=== PATIENT | female | born 1995 ===

== ENCOUNTER 2017-05-21 13:49 | Inpatient (IN) | payer BC ==
[~2017-05-21] VITALS: Ht 162.6 cm; Wt 52.2 kg
[2017-05-22 20:44] VITALS: BP 122/71
[2017-05-22] MEDS ORDERED: Lactulose 20gm/30ml UDC ORAL PRN (21:00)
[2017-05-22] MEDS ORDERED: traMADol 50mg tab ORAL PRN (21:00)
[2017-05-23] VITALS: BP 99/52
[2017-05-23] MEDS ORDERED: Morphine Sulfate 4mg/ml Inj ONE ×3 (00:05→09:17)
[2017-05-23] MEDS: ALPRAZolam 0.5mg tab ORAL SCH ×2 (00:11→09:23)
[2017-05-23] MEDS: Morphine Sulfate 2mg/ml Inj IVP PRN ×2 (00:12→05:00)
[2017-05-23 04:00] VITALS: BP 125/70
[2017-05-23 08:04] VITALS: BP 102/75
[2017-05-23 08:24] LABS: BASOPHILS % (AUTO) 0.8 % (0.0-2.0); EOSINOPHILS % (AUTO) 5.6 % (0.0-3.0); HEMATOCRIT 41.3 % (37.0-47.0); HEMOGLOBIN 13.2 G/DL (12.0-16.0); LYMPHOCYTES % (AUTO) 38.7 % (20.0-45.0); MEAN CORPUSCULAR VOLUME 74 FL (80-99); MONOCYTES % (AUTO) 8.5 % (1.0-10.0); NEUTROPHILS % (AUTO) 46.5 % (45.0-75.0); PLATELET COUNT 294 K/UL (150-450); RED CELL DISTRIBUTION WIDTH 14.9 % (11.6-14.8)
[2017-05-23 08:36] LABS: ALANINE AMINOTRANSFERASE 404 U/L (12-78); ALBUMIN 3.1 G/DL (3.4-5.0); ALBUMIN/GLOBULIN RATIO 0.6 (1.0-2.7); ALKALINE PHOSPHATASE 172 U/L (46-116); ANION GAP 4 mmol/L (5-15); ASPARTATE AMINO TRANSFERASE 121 U/L (15-37); BILIRUBIN,TOTAL 0.2 MG/DL (0.2-1.0); BLOOD UREA NITROGEN 13 mg/dL (7-18); CALCIUM 9.3 MG/DL (8.5-10.1); CARBON DIOXIDE 33 MMOL/L (21-32); CHLORIDE 102 MMOL/L (98-107); CREATININE 0.7 MG/DL (0.55-1.30); PHOSPHORUS 4.2 MG/DL (2.5-4.9); POTASSIUM 4.4 MMOL/L (3.5-5.1); SODIUM 139 MMOL/L (136-145)
[2017-05-23] MEDS ORDERED: cefTRIAXone 2 GM in D5W 55 ML IVPB SCH (09:00)
[2017-05-23] MEDS ORDERED: cefTRIAXone 2 GM in NS 55 ML IVPB SCH (09:00)
[2017-05-23] MEDS ORDERED: Enoxaparin 40mg Inj SUBQ SCH (09:00)
[2017-05-23] MEDS ORDERED: Morphine Sulfate 4mg/ml Inj IVP PRN ×2 (10:00→10:30)
[2017-05-23] MEDS ORDERED: NS 275ml ONE (12:35)
[2017-05-23] MEDS ORDERED: Tubing IV Secondary IV ONE (12:35)
--- NOTE | 2017-05-23 12:40 | Consultation ---
Consult Note Consult Note ID NOTE DICTATED ? # PT is leaving AMA Rx for Amoxi x 2 wks was provided ABRAHAN SHULTZ M.D. May 23, 2017 12:40
--- NOTE | 2017-05-23 12:42 | GI Initial Consult Note ---
History of Present Illness General Date patient seen: May 23, 2017 Time patient seen: 12:33 Referring physician: ILYA PHILLIP Reason for Consultation: ELEVATED LFTs Present Illness HPI 22 year old female patient direct transfer from [place] admitted for abdominal pain. GI ask to see patient for elevated LFTs. The patient denies any past medical history. Is homeless and is a amphetamine/heroin user. She denies any abdominal pain at this time, denies any N/V/D. Patient is anxious, stating she wants to go AMA and will return if she has to. Per verbal report, abdominal U/ S was performed at [place] negative for any stones. Presents today with transaminitis, elevate alkaline phosphatase and hypoalonemia. Patient has no history of endoscopic / colonoscopies. Med list reviewed/reconciled: Yes Allergies: Coded Allergies: No Known Allergies (Unverified , 05/22/17) Patient History History Provided By: Patient PMH Narrative Denies Social History: Reports: drug use Review of Systems All Other Systems: negative except mentioned in HPI Physical Exam Vital Signs Date Time Temp Pulse Resp B/P (MAP) Pulse Ox O2 Delivery O2 Flow Rate FiO2 05/22/17 20:00 107 05/22/17 20:44 97.0 18 122/71 96 Room Air 21 97.0 Sp02 EP Interpretation: reviewed, normal Labs Laboratory Tests Test 05/23/17 07:30 White Blood Count 6.0 K/UL (4.8-10.8) Red Blood Count 5.60 M/UL (4.20-5.40) H Hemoglobin 13.2 G/DL (12.0-16.0) Hematocrit 41.3 % (37.0-47.0) Mean Corpuscular Volume 74 FL (80-99) L Mean Corpuscular Hemoglobin 23.5 PG (27.0-31.0) L Mean Corpuscular Hemoglobin Concent 31.8 G/DL (32.0-36.0) L Red Cell Distribution Width 14.9 % (11.6-14.8) H Platelet Count 294 K/UL (150-450) Mean Platelet Volume 6.6 FL (6.5-10.1) Neutrophils (%) (Auto) 46.5 % (45.0-75.0) Lymphocytes (%) (Auto) 38.7 % (20.0-45.0) Monocytes (%) (Auto) 8.5 % (1.0-10.0) Eosinophils (%) (Auto) 5.6 % (0.0-3.0) H Basophils (%) (Auto) 0.8 % (0.0-2.0) Sodium Level 139 MMOL/L (136-145) Potassium Level 4.4 MMOL/L (3.5-5.1) Chloride Level 102 MMOL/L (98-107) Carbon Dioxide Level 33 MMOL/L (21-32) H Anion Gap 4 mmol/L (5-15) L Blood Urea Nitrogen 13 mg/dL (7-18) Creatinine 0.7 MG/DL (0.55-1.30) Estimat Glomerular Filtration Rate > 60 mL/min (>60) Glucose Level 76 MG/DL (74-106) Calcium Level 9.3 MG/DL (8.5-10.1) Phosphorus Level 4.2 MG/DL (2.5-4.9) Magnesium Level 2.3 MG/DL (1.8-2.4) Total Bilirubin 0.2 MG/DL (0.2-1.0) Aspartate Amino Transf (AST/SGOT) 121 U/L (15-37) H Alanine Aminotransferase (ALT/SGPT) 404 U/L (12-78) H Alkaline Phosphatase 172 U/L (46-116) H Total Protein 8.5 G/DL (6.4-8.2) H Albumin 3.1 G/DL (3.4-5.0) L Globulin 5.4 g/dL Albumin/Globulin Ratio 0.6 (1.0-2.7) L General Appearance: well appearing, no apparent distress, alert, thin Head: normocephalic EENT: PERRL/EOMI, normal ENT inspection Neck: supple Respiratory: normal breath sounds, no respiratory distress Cardiovascular: normal rate Gastrointestinal: normal inspection, non tender, soft, normal bowel sounds, non -distended Rectal: deferred Genitourinary: no CVA tenderness Musculoskeletal: normal inspection, back normal Neurologic: normal inspection, alert, oriented x3, responsive Psychiatric: normal inspection, judgement/insight normal, memory normal Skin: normal inspection, normal color, no rash, warm/dry, palpation normal, well hydrated Lymphatic: normal inspection, no adenopathy Current Medications Current Medications Medications (Trade) Dose Ordered Sig/Suzanne Route PRN Reason Start Time Stop Time Status Last Admin Dose Admin Acetaminophen (Tylenol) 650 mg Q6HR PRN ORAL Prn Headache/Temp > 101 05/22/17 21:00 06/21/17 20:59 Alprazolam (Xanax) 1 mg TID ORAL 05/22/17 21:00 05/29/17 20:59 05/23/17 09:23 Ceftriaxone Sodium 2 gm/ Sodium Chloride 55 ml @ 110 mls/hr Q24H IVPB 05/23/17 09:00 05/30/17 23:59 05/23/17 09:21 Dextrose (Dextrose 50%) STAT PRN IV Hypoglycemia 05/22/17 21:00 06/21/17 20:59 Enoxaparin Sodium (Lovenox) 40 mg DAILY SUBQ 05/23/17 09:00 06/22/17 08:59 05/23/17 09:22 Ibuprofen (Motrin) 600 mg Q6H PRN ORAL Mild Pain (Pain Scale 1-3) 05/22/17 21:00 06/21/17 20:59 Lactulose (Cephulac) 20 gm THREE TIMES A DAY PRN ORAL Constipation 05/22/17 21:00 06/21/17 20:59 Morphine Sulfate (Morphine Sulfate) 2 mg Q4H PRN IVP Severe Pain (Pain Scale 7-10) 05/23/17 10:30 05/30/17 10:29 05/23/17 11:20 Nicotine (Nicoderm) 1 patch Q24H TDERMAL 05/23/17 11:00 06/22/17 10:59 Ondansetron HCl (Zofran) 4 mg Q6H PRN IVP Nausea & Vomiting 05/22/17 21:00 06/21/17 20:59 Temazepam (Restoril) 15 mg QHS PRN ORAL Insomnia 05/22/17 21:00 05/29/17 20:59 05/23/17 01:01 Tramadol HCl (Ultram) 50 mg Q6H PRN ORAL Moderate Pain (Pain Scale 4-6) 05/22/17 21:00 05/29/17 20:59 GI: Plan Problems: (1) Drug abuse and dependence (2) Transaminitis (3) Alkaline phosphatase elevation (4) Abdominal pain (5) Sepsis without acute organ dysfunction (6) Dehydration Plan abdominal U/S from [place] per verbal report of no stones symptomatic treatment ordered utox, iron panel fu hepatitis panel fu ID recs, 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 Castro. Thank you for this patient referral, we will follow. Veronica Baxter N.P. May 23, 2017 12:42
--- NOTE | 2017-05-23 12:47 | Consultation ---
History of Present Illness General Date patient seen: May 23, 2017 Referring physician: ILYA PHILLIP Reason for Consultation: inpatient management Present Illness HPI 22 year old female patient direct transfer from [place] admitted for abdominal pain. The patient denies any past medical history. Is homeless and is a amphetamine/heroin user. An abdominal U/S was performed at [place] negative for any stones. She is c/o Left ankle pain. Allergies: Coded Allergies: No Known Allergies (Unverified , 05/22/17) Patient History Healthcare decision maker Resuscitation status Full Code Advanced Directive on File Past Medical/Surgical History Past Medical/Surgical History: (1) Drug abuse and dependence Review of Systems Constitutional: Reports: malaise, weakness Eye: Reports: no symptoms ENT: Reports: no symptoms All Other Systems: negative except mentioned in HPI Physical Exam General Appearance: cachetic Lines, tubes and drains: peripheral HEENT: normocephalic, anicteric Neck: non-tender, normal alignment Respiratory/Chest: chest wall non-tender, lungs clear Breasts: no masses Cardiovascular/Chest: normal peripheral pulses Abdomen: normal bowel sounds Genitourinary/Rectal: normal genital exam Extremities: normal range of motion Last 24 Hour Vital Signs Date Time Temp Pulse Resp B/P (MAP) Pulse Ox O2 Delivery O2 Flow Rate FiO2 05/23/17 08:04 97.0 96 18 102/75 95 Room Air 97.0 05/23/17 08:00 107 05/23/17 05:30 97.5 05/23/17 04:00 97.5 76 18 125/70 98 Room Air 21 97.5 05/23/17 04:00 108 05/23/17 00:12 97.0 05/23/17 00:00 72 05/23/17 00:00 97.3 96 18 99/52 98 Room Air 21 97.3 05/22/17 20:44 97.0 111 18 122/71 96 Room Air 21 97.0 05/22/17 20:00 107 Intake and Output 05/22/17 05/23/17 19:00 07:00 Intake Total 250 ml Balance 250 ml Intake Oral 250 ml # Voids 1 Laboratory Tests Test 05/23/17 07:30 White Blood Count 6.0 K/UL (4.8-10.8) Red Blood Count 5.60 M/UL (4.20-5.40) H Hemoglobin 13.2 G/DL (12.0-16.0) Hematocrit 41.3 % (37.0-47.0) Mean Corpuscular Volume 74 FL (80-99) L Mean Corpuscular Hemoglobin 23.5 PG (27.0-31.0) L Mean Corpuscular Hemoglobin Concent 31.8 G/DL (32.0-36.0) L Red Cell Distribution Width 14.9 % (11.6-14.8) H Platelet Count 294 K/UL (150-450) Mean Platelet Volume 6.6 FL (6.5-10.1) Neutrophils (%) (Auto) 46.5 % (45.0-75.0) Lymphocytes (%) (Auto) 38.7 % (20.0-45.0) Monocytes (%) (Auto) 8.5 % (1.0-10.0) Eosinophils (%) (Auto) 5.6 % (0.0-3.0) H Basophils (%) (Auto) 0.8 % (0.0-2.0) Sodium Level 139 MMOL/L (136-145) Potassium Level 4.4 MMOL/L (3.5-5.1) Chloride Level 102 MMOL/L (98-107) Carbon Dioxide Level 33 MMOL/L (21-32) H Anion Gap 4 mmol/L (5-15) L Blood Urea Nitrogen 13 mg/dL (7-18) Creatinine 0.7 MG/DL (0.55-1.30) Estimat Glomerular Filtration Rate > 60 mL/min (>60) Glucose Level 76 MG/DL (74-106) Calcium Level 9.3 MG/DL (8.5-10.1) Phosphorus Level 4.2 MG/DL (2.5-4.9) Magnesium Level 2.3 MG/DL (1.8-2.4) Total Bilirubin 0.2 MG/DL (0.2-1.0) Aspartate Amino Transf (AST/SGOT) 121 U/L (15-37) H Alanine Aminotransferase (ALT/SGPT) 404 U/L (12-78) H Alkaline Phosphatase 172 U/L (46-116) H Total Protein 8.5 G/DL (6.4-8.2) H Albumin 3.1 G/DL (3.4-5.0) L Globulin 5.4 g/dL Albumin/Globulin Ratio 0.6 (1.0-2.7) L Height (Feet): 5 Height (Inches): 4.00 Weight (Pounds): 115 Medications Current Medications Medications (Trade) Dose Ordered Sig/Suzanne Route PRN Reason Start Time Stop Time Status Last Admin Dose Admin Acetaminophen (Tylenol) 650 mg Q6HR PRN ORAL Prn Headache/Temp > 101 05/22/17 21:00 06/21/17 20:59 Alprazolam (Xanax) 1 mg TID ORAL 05/22/17 21:00 05/29/17 20:59 05/23/17 09:23 Ceftriaxone Sodium 2 gm/ Sodium Chloride 55 ml @ 110 mls/hr Q24H IVPB 05/23/17 09:00 05/30/17 23:59 05/23/17 09:21 Dextrose (Dextrose 50%) STAT PRN IV Hypoglycemia 05/22/17 21:00 06/21/17 20:59 Enoxaparin Sodium (Lovenox) 40 mg DAILY SUBQ 05/23/17 09:00 06/22/17 08:59 05/23/17 09:22 Ibuprofen (Motrin) 600 mg Q6H PRN ORAL Mild Pain (Pain Scale 1-3) 05/22/17 21:00 06/21/17 20:59 Lactulose (Cephulac) 20 gm THREE TIMES A DAY PRN ORAL Constipation 05/22/17 21:00 06/21/17 20:59 Morphine Sulfate (Morphine Sulfate) 2 mg Q4H PRN IVP Severe Pain (Pain Scale 7-10) 05/23/17 10:30 05/30/17 10:29 05/23/17 11:20 Nicotine (Nicoderm) 1 patch Q24H TDERMAL 05/23/17 11:00 06/22/17 10:59 Ondansetron HCl (Zofran) 4 mg Q6H PRN IVP Nausea & Vomiting 05/22/17 21:00 06/21/17 20:59 Temazepam (Restoril) 15 mg QHS PRN ORAL Insomnia 05/22/17 21:00 05/29/17 20:59 05/23/17 01:01 Tramadol HCl (Ultram) 50 mg Q6H PRN ORAL Moderate Pain (Pain Scale 4-6) 05/22/17 21:00 05/29/17 20:59 Assessment/Plan Problem List: (1) Drug abuse and dependence ICD Codes: F19.20 - Other psychoactive substance dependence, uncomplicated SNOMED: 2692975 (2) Abdominal pain ICD Codes: R10.9 - Unspecified abdominal pain SNOMED: 87273935 (3) Dehydration ICD Codes: E86.0 - Dehydration SNOMED: 55637848 Assessment/Plan npo iv fluids GI evaluation ID evaluation, b/o hx of drug abuse and possible endocarditis RAISSA CHAN May 23, 2017 12:47
--- NOTE | 2017-05-23 20:45 | History and Physical Report ---
DATE OF ADMISSION: 05/22/2017 CHIEF COMPLAINT: The patient is a 22-year-old, white female, presents with chief complaint of sepsis. HISTORY OF PRESENT ILLNESS: The patient was initially admitted to [facility] on 05/18/2017. The patient had two sets of blood cultures, which grew out Streptococcus pyogenes. The patient had a transthoracic echocardiogram, which failed to demonstrate valvular vegetations. The patient was treated with vancomycin and Zosyn. This was changed to ceftriaxone 2 g daily intravenously. The patient has a history of intravenous methamphetamine and heroin use. The patient is transferred to [facility] for insurance purposes. The patient is admitted for sepsis to rule out endocarditis. PAST MEDICAL HISTORY: The patient denies. PAST SURGICAL HISTORY: The patient denies. CURRENT MEDICATIONS: Xanax 1 mg p.o. daily p.r.n. ALLERGIES: No known drug allergies. SOCIAL HISTORY: The patient is single and is currently homeless. The patient admits to tobacco use of one-quarter pack per day. The patient denies alcohol use. The patient admits to methamphetamine and heroin use of 0.5 to 1 g daily. The patient last used methamphetamine and heroin on 05/16/2017. REVIEW OF SYSTEMS: CONSTITUTIONAL: The patient denies weight loss or weight gain. The patient did have a fever of 101.9 degrees at [place]. HEENT: The patient denies ear or throat pain. The patient denies headache. CARDIOVASCULAR: The patient denies palpitations or chest pain. CHEST: The patient denies wheeze or shortness of breath. ABDOMEN: The patient denies nausea, vomiting, diarrhea, or constipation. GENITOURINARY: The patient denies dysuria or increased frequency of urination. NEUROMUSCULAR: The patient complains of left ankle pain. The patient denies seizures or generalized weakness. PHYSICAL EXAMINATION: GENERAL: The patient is a well-developed, well-nourished white female, in no apparent distress. VITAL SIGNS: Temperature 97.0 degrees; respirations 18; pulse, tachycardic at 111; and blood pressure 122/79. HEENT: Eyes, pupils are equal and responsive to light and accommodation. Extraocular movements are intact. NECK: Supple without lymphadenopathy. CHEST: Lungs are clear to auscultation bilaterally without wheezes or rales. CARDIOVASCULAR: Regular rate. S1 and S2 normal without murmurs, rubs, or gallops. ABDOMEN: Soft, nontender, and nondistended. Positive bowel sounds. No evidence of hepatosplenomegaly. Currently, no rebound or guarding. EXTREMITIES: Negative for clubbing, cyanosis, or edema. RECTAL/GENITAL: Deferred. NEUROLOGIC: Cranial nerves II through XII are grossly intact without focal deficits. Motor strength is 5/5 bilaterally. Deep tendon reflexes are 2+ plantar. LABORATORY AND DIAGNOSTIC DATA: WBC 6.0, hemoglobin 13.2, hematocrit 41.3 and platelets 294,000. Sodium 139, potassium 4.4, chloride 102, CO2 33, BUN 13, creatinine 0.7 and glucose 76. Liver function tests are elevated with AST of 121, ALT 404, and alkaline phosphatase of 172. ASSESSMENT: This is a 22-year-old white female. 1. Sepsis. 2. Methamphetamine and heroin dependence. 3. Elevated liver function tests. 4. Left ankle pain. TREATMENT: 1. Sepsis. Blood cultures at [place] grown Streptococcus pyogenes. The patient is currently on ceftriaxone 2 g IV daily. An Infectious Diseases consultation will be obtained with Dr. Perez. A Cardiology consultation will be obtained with Dr. Filiberto Stevenson for possible transesophageal echocardiogram. Repeat blood cultures are pending. 2. Methamphetamine/heroin dependence/withdrawal. The patient has been detoxed at this point by [facility]. 3. Elevated liver function tests. A right upper quadrant ultrasound at [place] failed to demonstrate gallstones. A Gastroenterology consultation will be obtained with Dr. Castro. Differential diagnosis includes hepatitis B, as the patient is an intravenous drug abuser. 4. Left ankle pain. An x-ray of the left ankle is pending. Deangelo Rooney M.D. DR: PADMINI JOB#: [id number] CC:
--- NOTE | 2017-05-23 23:15 | Consultation ---
DATE OF CONSULTATION: INFECTIOUS DISEASE CONSULTATION CONSULTING PHYSICIAN: Butch Perez M.D. REFERRING PHYSICIAN: Deangelo Rooney M.D. REASON FOR CONSULTATION: Evaluation of the patient for bacteremia and antibiotic management. HISTORY OF PRESENT ILLNESS: The patient is a 22-year-old female who was recently seen in [facility]. The patient mentioned she felt there is some source of infection in the hands and legs, but she could not be very specific about that. The patient over there was found to have abnormal liver function tests and bacteremia (Streptococcus pyogenes). A regular echo came negative for vegetation. The patient was transferred over here for further care. However, the patient has decided to leave against medical advice. PAST MEDICAL HISTORY: History of hepatitis C antibody positive from [facility]. Hepatitis B workup was negative. SOCIAL HISTORY: Significant for smoking marijuana, heroin, crystal, history of IV drug abuse, and skin popping. ALLERGIES: No known drug allergies. MEDICATIONS: Antibiotics, Rocephin. FAMILY HISTORY: Not contributing. REVIEW OF SYSTEMS: A 10-point review was done, and except what was mentioned has been negative.HEENT: No recent change in vision or hearing. PULMONARY: No cough or shortness of breath CARDIOVASCULAR: No chest pain or palpitation. GASTROINTESTINAL/ABDOMEN: No nausea or vomiting. GENITOURINARY: No dysuria. MUSCULOSKELETAL: No pain in extremity. PHYSICAL EXAMINATION: VITAL SIGNS: Temperature 97, blood pressure 102/75, pulse 86, and respiratory rate 18. HEENT: No pale conjunctivae. No icterus. NECK: No lymphadenopathy. CHEST: Clear. HEART: S1 and S2. ABDOMEN: Soft, nontender. EXTREMITIES: No cyanosis at this time abscess. NEUROLOGIC: Awake and alert. LABORATORY DATA: White blood cells 6, hemoglobin 13, platelets 294. BUN 13, creatinine 0.6. ALT 44, AST 121, and alkaline phosphatase 172. ASSESSMENT: 1. The patient is a 22-year-old female with history of pyuria and bacteremia with unknown source, needs to rule out possibility of endocarditis in the setting with history of IV drug abuse. 2. Abnormal liver function tests, hepatitis C antibody positive (most likely active), rule out human immunodeficiency virus. PLAN: 1. The patient decides to sign against medical advice, I discussed and insisted the patient needs to stay in view of patient's life-threatening condition. However, she understands the risks and despite of that, she wants to leave and be with her friends. 2. I provided the patient as the next alternative oral antibiotics for her, but I told her this could not be sufficient and she may require IV antibiotics. Prescription for amoxicillin 500 q.8 h. for 2 weeks was placed in the chart. 3. If the patient stays, the patient will require a JEFFREY and we might repeat blood cultures and hepatitis C PCR and HIV. Thank you, Dr. Rooney, for allowing me to participate in the care of this patient. I will follow the patient with you during this hospitalization. Butch Perez M.D. DR: VELVET JOB#: [id number] CC:
--- NOTE | 2017-05-24 05:00 | Consultation ---
DATE OF CONSULTATION: 05/22/2017 NOTE: POOR AUDIO CONSULTING PHYSICIAN: Martin Sosa M.D. HISTORY OF PRESENT ILLNESS: This is a 22-year-old female with a history of substance use disorder including heroin and crystal meth. The patient has been presenting with has been taking Xanax. She . She has been prescribed . She is a poor historian and somewhat uncooperative. She has poor insight into her medical condition. She has been diagnosed with sepsis and is being treated with antibiotics. The patient is not endorsing any psychotic or manic symptoms. No depression. PAST PSYCHIATRIC HISTORY: She denies any psychiatric history. PAST MEDICAL HISTORY: Sepsis cellulitis. ALLERGIES: No known drug allergies. SUBSTANCE ABUSE HISTORY: Heroin, crystal meth, and benzodiazepine. MENTAL STATUS EXAMINATION: The patient is alert and oriented x3. Mood is anxious. Affect is constricted, congruent with mood. Thought process is concrete. Thought content, no suicidal or homicidal ideation. ASSESSMENT: AXIS I Substance use disorder. AXIS II Deferred. AXIS III As above. AXIS IV Moderate. AXIS V Global assessment of functioning is 50. PLAN: 1. Continue the Xanax. 2. We will continue to follow and readjust the medications. Martin Sosa M.D. DR: Kimani JOB#: [id number] CC:
--- NOTE | 2017-05-24 14:00 | Progress Note ---
DATE: 05/23/2017 SUBJECTIVE: The patient is more anxious Xanax and morphine for medications. The patient to take more Xanax and morphine detox and suggested that she . The patient has poor insight and judgment. She wants to leave reconnect with her aunt. MENTAL STATUS EXAMINATION: The patient is oriented x3. Mood is neutral. Affect is full range. Congruent with mood. Thought process is linear. Thought content, no suicidal or homicidal ideations. Cognition is intact. Insight and judgment is fair. ASSESSMENT: [place] I Crystal methamphetamine and opiate dependence. [place]e II Deferred. [place]e III As above. [place]e IV Low. [place]e V Global assessment of functioning is 25. PLAN: 1. The patient's Xanax will be decreased. 2. Recommended long-acting opioid pain medications versus IV morphine. 3. Continue to follow and readjust the medications. Martin Sosa M.D. DR: Ulises JOB#: [id number] CC:
--- NOTE | 2017-05-24 16:12 | Discharge Summary ---
Discharge Summary Hospital Course Date of Admission May 22, 2017 at 18:30 Date of Discharge May 23, 2017 at 12:36 Admitting Diagnosis HPI Sary Kam is a 22 year old female who was admitted on May 22, 2017 at 18:30 for Sepsis Hospital Course [id number] Discharge Discharge Disposition Patient left AMA Discharge Diagnoses: Alisson Garrido NP May 24, 2017 16:12
--- NOTE | 2017-05-25 00:32 | Discharge Summary 2 SIG ---
DATE OF ADMISSION: 05/22/2017 DATE OF DISCHARGE: 05/23/2017 ATTENDING PHYSICIAN: Dru Genao M.D. CONSULTANTS: 1. Martin Sosa M.D. 2. Sierra Del Cid M.D. 3. Kareem Castro M.D. 4. Butch Perez M.D. BRIEF HOSPITAL COURSE: The patient is a 22-year-old white female, who presented to ED for sepsis. The patient was initially admitted to [facility] on 05/18/2017. She had two sets of blood cultures, which grew Streptococcus pyogenes. She had a transthoracic echocardiogram, which failed to demonstrate valvular vegetations. She was treated with vancomycin and Zosyn and was changed to ceftriaxone 2 g IV daily. She has history of intravenous methamphetamine and heroin use. She was eventually transferred to [facility] for insurance purposes and was admitted for sepsis to rule out endocarditis. She had fever of 101.9 degrees at [place]. She had elevated liver function tests and alkaline phosphatase. She had been methamphetamine/heroin dependency/withdrawal and has been detoxed at [facility]. She was given IV hydration. The patient was ordered to have repeat blood cultures and transesophageal echocardiogram. Full treatment was not carried out as the patient signed out against medical advice. FINAL DIAGNOSES: 1. Sepsis with possibility of endocarditis in the setting of history of IV drug use. 2. Abnormal liver function tests and hepatitis C antibody positive. 3. Substance use disorder. 4. Left ankle pain. 5. Dehydration. 6. Noncompliance as the patient signed out against medical advice. Deangelo Rooney M.D. I have been assigned to dictate discharge summary on this account and I was not involved in the patient's management. Alisson Garrido N.P. DR: AVERY JOB#: [id number] CC:
--- NOTE | 2017-05-30 13:08 | Diagnostic Imaging Report ---
APPROVED REPORT CPT Code: 96654 Present Symptoms Comments: Hx of left ankle wound R/O DVT BILATERAL: Imaging reveals a patent deep venous system bilaterally. There is no evidence of thrombus within the femoral, popliteal or tibial segments. The greater saphenous veins are also within normal limits. Doppler indicates normal spontaneous flow within these segments.
== END 2017-05-23 12:36 | disposition left against medical advice (07) | DRG 872 ==
LOC: 2E 05-22 18:30
DX: A41.9 Sepsis, unspecified organism (principal); I38 Endocarditis, valve unspecified; F11.23 Opioid dependence with withdrawal; F15.23 Other stimulant dependence with withdrawal; E86.0 Dehydration; R74.8 Abnormal levels of other serum enzymes; R74.0 Nonspecific elevation of levels of transaminase and lactic acid dehydrogenase [LDH]; Z59.0 Homelessness; M25.572 Pain in left ankle and joints of left foot; Z53.21 Procedure and treatment not carried out due to patient leaving prior to being seen by health care provider; Z91.19 Patient's noncompliance with other medical treatment and regimen
CPT/HCPCS: 36415; 80053; 83735; 84100; 85025; 87081; 93970